=== PATIENT | female | born 1990 | race Two or more races ===

== ENCOUNTER → 2019-12-15 | Outpatient (CLI) | payer OTHER ==
--- NOTE | 2019-12-15 16:20 | RAD ---
Examination: 1. Ultrasound-guided right breast core needle biopsy. 2. Right digital post procedure mammogram. INDICATION: 24-year-old woman presenting with a palpable mass in the medial right breast recommended for biopsy. COMPARISON: Limited right breast ultrasound of 11/05/2019 at [facility]. TECHNIQUE AND FINDINGS: Informed consent was obtained and an appropriate procedural pause observed using Estonian-language interpretive services. Using standard sterile technique, ultrasound guidance and local anesthesia, 2 12-gauge core biopsy samples of the palpable mass in the medial right breast at the 2:00 position 7 cm from the nipple (which measures 3.5 cm at this visit) were obtained and placed in formalin. An S shaped biopsy marker was deployed under ultrasound guidance and hemostasis assured with direct breast compression for 10 minutes. The puncture site was subsequently dressed and a digital right postprocedure mammogram was obtained. The right postprocedure mammogram shows extremely dense breast parenchyma but satisfactory deployment of the biopsy marker in the medial right breast. No post biopsy hematoma is apparent. The mass is obscured by the surrounding dense breast tissue. On the MLO view, it appears to represent a mixed density mass having a well-circumscribed but partially imaged capsule. IMPRESSION: Successful ultrasound-guided right breast core needle biopsy of a palpable mass with satisfactory deployment of a biopsy marker in the mass as documented on post procedure mammogram. Leading differential considerations for this mass include a fibroadenoma or a hamartoma. Pathology results are pending. An addendum will be issued once pathology results become available.
--- NOTE | 2019-12-16 17:06 | PATHOLOGY ---
[facility] Accession Number: [id number] . 01 Material submitted: . breast - RIGHT BREAST MASS 2:00 7CMFN 2.7CM. Modifiers: right, 2:00 . 01 Clinical history: . Right breast mass 2:00, 7 cm FN 2.7 cm . 02 Diagnosis: Breast tissue, right breast mass 2:00 needle biopsies; - Fibroadenoma. LBQ 12/16/2019 1205 Local . 02 Comment: There is no evidence of malignancy. (JPM/db; 12/16/2019) . 02 Electronically signed: . Carlos Gant MD, Pathologist NPI- [id number] . 01 Gross description: . The specimen is received in formalin, labeled "Nisa Mcmullen, right breast" and consists of 2 pink-higuera fibroadipose breast needle cores measuring 0.9 and 1.3 cm in length and 0.2 cm in diameter. They were obtained at 10:20 and placed in formalin at 10:20. The cold ischemic time is less than 1 minute, and the total time in formalin is greater than 6 hours and less than 72. ([facility]; 12/15/2019) JFQ/JFQ 12/16/2019 1204 Local . 02 Pathologist provided ICD-10: D24.1 . 02 CPT . 672143 Specimen Comment: A courtesy copy of this report has been sent to [phone], [phone] Specimen Comment: [id number] Specimen Comment: Report sent to / DR GARCIA Performed at: [address], [place], [place] [id number] MD Magdaleno Jackson MD Phone: [phone] Performed at: 02 [facility] [address] [place] [id number] MD Carlos Gant MD Phone: [phone]
== END | disposition home or self-care (01) ==
LOC: US 09:02
PROVIDERS: ATTEND Physician Assistant Medical
DX: N63.10 Unspecified lump in the right breast, unspecified quadrant (principal)
CPT/HCPCS: 76942; 77065; C1713; 88305